=== PATIENT | male | born 1940 | race Asian ===

== ENCOUNTER 2017-06-18 12:57 | Inpatient (IN) | payer MEDICARE, OTHER ==
[~2017-06-18] VITALS: Ht 170.2 cm; Wt 84.5 kg
[2017-06-18] MEDS ORDERED: SODIUM CHLORIDE 0.9% 1,000 ML IV ONE ×2 (13:39→15:15)
[2017-06-18] MEDS ORDERED: ACETAMINOPHEN 650 mg PER 20 mL UD PO ONE (13:45)
[2017-06-18] MEDS ORDERED: IBUPROFEN 600 MG TAB PO ONE (13:45)
[2017-06-18 14:04] LABS: Basophils # (auto) 0.1 uL; Basophils % (auto) 0.8 % (0.0-2.0); Eosinophils # (auto) 0 uL; Eosinophils % (auto) 0.5 % (0.0-7.0); Hematocrit 47.4 % (41.0-53.0); Hemoglobin 16.1 g/dL (13.5-17.5); Lymphocytes # (auto) 1.4 uL; Lymphocytes % (auto) 18.1 % (10.0-50.0); Mean Corpuscular Hgb Conc. 34.1 g/dL (32.0-36.0); Mean Corpuscular Volume 88.2 fL (80.0-100.0); Monocytes # (auto) 0.7 uL; Monocytes % (auto) 9.3 % (0.0-12.0); Neutrophils # (auto) 5.3 uL; Neutrophils % (auto) 71.3 % (37.0-80.0); Nucleated Red Blood Cells % 0.1 %; Platelet Count (auto) 136 10^3/uL (140-450); Red Blood Cells 5.37 10^6/uL (4.5-5.90); Red Cell Distribution Width 14.1 % (11.8-14.3); White Blood Cell 7.5 10^3/uL (4.4-10.8)
[2017-06-18 14:29] LABS: Albumin 3.6 g/dL (3.4-5.0); Bilirubin, Total 0.6 mg/dL (0.2-1.0); Calcium 9.4 mg/dL (8.5-10.1); Potassium 3.7 mmol/L (3.5-5.1); Total Protein 8.1 g/dL (6.4-8.2)
[2017-06-18] MEDS ORDERED: LEVOFLOXACIN 500MG 100 ML IV ONE (15:15)
[2017-06-18] MEDS ORDERED: AZITHROMYCIN 500MG/ 250ML 250 ML IV ONE (16:00)
[2017-06-18] MEDS ORDERED: ACETAMINOPHEN 500 MG TAB PO PRN (16:00)
[2017-06-18] MEDS ORDERED: PROMETHAZINE HCL 25 MG/ML 1ML IV PRN (16:00)
[2017-06-18] MEDS ORDERED: cefTRIAXone 1GM/10ml IVPUSH 10 ML IV ONE (16:00)
[2017-06-18] MEDS ORDERED: HYDROcodone-ACET 5/325MG TAB PO PRN (16:00)
[2017-06-18] MEDS: SODIUM CHLORIDE 0.9% 1,000 ML IV SCH (16:35)
[2017-06-18 19:25] LABS: Urine Bacteria NONE SEEN /hpf (None Seen); Urine Blood Negative /uL (Negative); Urine Mucus FEW (None Seen); Urine Specific Gravity 1.009 (1.001-1.035); Urine WBC 1 /hpf (0 - 3)
[2017-06-18 20:00] VITALS: BP 111/57
[2017-06-18 22:00] VITALS: BP 111/57
[2017-06-19] MEDS: SODIUM CHLORIDE 0.9% 1,000 ML IV SCH ×3 (02:00→23:25)
[2017-06-19 06:14] VITALS: BP 119/64
[2017-06-19 07:30] LABS: Potassium 3.8 mmol/L (3.5-5.1)
[2017-06-19 07:34] LABS: Basophils # (auto) 0 uL; Basophils % (auto) 0.6 % (0.0-2.0); Eosinophils # (auto) 0.1 uL; Eosinophils % (auto) 1.8 % (0.0-7.0); Lymphocytes # (auto) 1.2 uL; Mean Corpuscular Hemoglobin 30.3 pg (28.0-32.0); Mean Corpuscular Hgb Conc. 34.2 g/dL (32.0-36.0); Mean Corpuscular Volume 88.6 fL (80.0-100.0); Monocytes # (auto) 0.8 uL; Monocytes % (auto) 13.8 % (0.0-12.0); Neutrophils # (auto) 3.9 uL; Neutrophils % (auto) 63.8 % (37.0-80.0); Nucleated Red Blood Cells % 0.4 %; Platelet Count (auto) 121 10^3/uL (140-450); Red Blood Cells 4.63 10^6/uL (4.5-5.90); Red Cell Distribution Width 14.3 % (11.8-14.3)
[2017-06-19 07:36] LABS: Albumin 2.7 g/dL (3.4-5.0); Calcium 8.4 mg/dL (8.5-10.1)
[2017-06-19 07:39] LABS: Bilirubin, Total 0.4 mg/dL (0.2-1.0); Total Protein 6.4 g/dL (6.4-8.2)
[2017-06-19 08:18] VITALS: BP 135/63
[2017-06-19] MEDS: cefTRIAXone 1GM/10ml IVPUSH 10 ML IV SCH (09:17)
[2017-06-19] MEDS: AZITHROMYCIN 500MG/ 250ML 250 ML IV SCH (10:00)
[2017-06-19 11:54] VITALS: BP 124/63
[2017-06-19 16:25] VITALS: BP 149/64
[2017-06-19 22:00] VITALS: BP 124/61
[2017-06-20 05:10] VITALS: BP 121/58
[2017-06-20] MEDS ORDERED: ATOR20TA PO (06:05)
[2017-06-20] MEDS ORDERED: TAMS0.4C36 PO (06:05)
[2017-06-20] MEDS ORDERED: LOSA50TA6 PO (06:05)
[2017-06-20 07:11] LABS: Albumin 2.7 g/dL (3.4-5.0); BUN/Creatinine Ratio 14.5; Calcium 8.3 mg/dL (8.5-10.1)
[2017-06-20 07:13] LABS: Bilirubin, Total 0.4 mg/dL (0.2-1.0); Total Protein 6.6 g/dL (6.4-8.2)
[2017-06-20 07:49] VITALS: BP 121/66
[2017-06-20] MEDS: cefTRIAXone 1GM/10ml IVPUSH 10 ML IV SCH (09:40)
[2017-06-20] MEDS: AZITHROMYCIN 500MG/ 250ML 250 ML IV SCH (09:52)
[2017-06-20 11:32] VITALS: BP 121/66
[2017-06-20 12:00] VITALS: BP 136/72
== END 2017-06-20 12:42 | disposition home or self-care (01) | DRG 871 ==
LOC: ER 13:09 → OVERFLOW 13:10 → TELE-CENTR 19:48 → CENTRAL 23:52
PROVIDERS: ADMIT Internal Medicine; ATTEND Internal Medicine
DX: A41.9 Sepsis, unspecified organism (principal); J18.9 Pneumonia, unspecified organism; E86.0 Dehydration; I10 Essential (primary) hypertension; K80.20 Calculus of gallbladder without cholecystitis without obstruction
CPT/HCPCS: 36415; 71046; 76705; 80053; 81001; 83605; 85025; 87040; 93005; 94761; 96361; 96365; 96367; 96375; J1956